=== PATIENT | male | born 1980 | race Caucasian/White ===

== ENCOUNTER 2017-02-22 11:38 | Emergency (ER) | payer OTHER ==
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
[~2017-02-22 11:38] MED LIST: AMOXICILLIN PO; ANDROGEL TOP; AUGMENTIN PO; BUMEX1 MG PO; BUMEX2 MG PO; CLONIDINE HCL0.1 MG PO; HUMULIN N100 U/ML SQ; HUMULIN R100 U/ML SUBQ; INSULIN PUMP; LASIX20 MG PO; LEXAPRO; LISINOPRIL20 MG PO; LOPRESSOR PO; LORTAB 5-325 M1 EACH PO; MINOXIDIL PO; NEXIUM PO; NORCO 5/325 TAB1 TAB; NORCO1 TAB 10/3 PO; NORMODYNE PO; NORVASC10 MG PO; NOVOLIN N100 U/M1 SUBQ; NOVOLIN N100 U/ML INJ; NOVOLIN R100 U/ML INJ; NOVOLOG100 U/M2; NOVOLOG100 U/M2 SUBQ; PHOSLO667 M1 PO; PROTONIX PO; REGLAN PO; REGLAN10 MG PO; SYNTHROID PO; TOBREX 0.3% OP3.5 GM OD; TOPROL XL200 MG PO; ZAROXOLYN5 MG PO; ZITHROMAX; ZOCOR PO; ZOFRAN; ZOFRAN PO
== END 2017-02-22 12:56 | disposition home or self-care (01) ==
LOC: SED 11:38
DX: S20.219A Contusion of unspecified front wall of thorax, initial encounter (principal); I12.0 Hypertensive chronic kidney disease with stage 5 chronic kidney disease or end stage renal disease; N18.6 End stage renal disease; E11.9 Type 2 diabetes mellitus without complications; Z91.013 Allergy to seafood; Z79.899 Other long term (current) drug therapy; V43.52XA Car driver injured in collision with other type car in traffic accident, initial encounter; Y92.410 Unspecified street and highway as the place of occurrence of the external cause
CPT/HCPCS: 71020; 99283